=== PATIENT | male | born 1970 | race Hispanic/Latino ===

== ENCOUNTER 2017-11-26 17:22 | Emergency (ER) | payer BC, OTHER ==
[~2017-11-26 17:22] MED LIST: LEVO500T2 PO; METF-444 PO
[2017-11-26 17:51] LABS: BASOPHILS % (AUTO) 0.6 % (0.0-5.0); EOSINOPHILS % (AUTO) 1.2 % (0.0-8.0); HEMATOCRIT 35.8 % (42-54); LYMPHOCYTES % (AUTO) 10.8 % (21.0-51.0); MEAN CORPUSCULAR HGB CONC 33.3 g/dL (32.0-36.0); MEAN CORPUSCULAR VOLUME 84.2 fL (79-99); NEUTROPHILS % (AUTO) 77.4 % (40.0-77.0); NUCLEATED RED BLOOD CELLS 0.1 % (0.0-0.19); PLATELET COUNT (AUTO) 167 K/uL (130-400); RED BLOOD CELL COUNT(AUTO) 4.25 MIL/uL (4.50-6.20); RED CELL DISTRIBUTION WIDTH 13.1 % (11.0-15.5)
[2017-11-26 18:02] LABS: CREATININE 1.3 mg/dL (0.5-1.5); POTASSIUM 3.6 mmol/L (3.5-5.1)
[2017-11-26] MEDS ORDERED: AMOXICILLIN/POTASSIUM CLAV 875-125 TABLET PO ONE (19:17)
== END 2017-11-26 19:20 | disposition home or self-care (01) ==
LOC: EDH 17:22
DX: J11.1 Influenza due to unidentified influenza virus with other respiratory manifestations (principal); K11.21 Acute sialoadenitis; E11.9 Type 2 diabetes mellitus without complications; I10 Essential (primary) hypertension
CPT/HCPCS: 36415; 80048; 85025; 87804

== ENCOUNTER 2017-11-27 08:04 | Emergency (ER) | payer OTHER ==
[2017-11-27] MEDS ORDERED: CLINDAMYCIN 600 MG/D5% WATER 50 ML IV ONE (09:10)
== END 2017-11-27 09:57 | disposition home or self-care (01) ==
LOC: EDH 08:04
DX: K11.21 Acute sialoadenitis (principal)
CPT/HCPCS: 82948; 96365; 99284; J3490

== ENCOUNTER 2023-08-25 12:08 | Emergency (ER) | payer OTHER ==
[~2023-08-25] VITALS: Ht 170.2 cm; Wt 129.3 kg
[2023-08-25 12:14] VITALS: O2SAT 95
[2023-08-25] MEDS ORDERED: DIAZEPAM 5 MG TABLET PO ONE (12:30)
[2023-08-25] MEDS: ONDANSETRON 4MG INJ IVP ONE (12:35)
[2023-08-25] MEDS: MORPHINE 4 MG SYG IVP ONE ×2 (12:36→16:11)
[2023-08-25] MEDS: DIAZEPAM 5 MG/ML 2 ML SYG IVP ONE (13:15)
[2023-08-25 13:36] VITALS: BP 155/78; PULSE 74; RESP 18
[2023-08-25] MEDS: PROPOFOL 10 MG/ML 20ML VIAL IV SCH (15:11)
[2023-08-25] MEDS: PROPOFOL 10 MG/ML 20ML VIAL IV ONE (15:13)
[2023-08-25] MEDS: MIDAZOLAM HCL 5 MG/ML 2ML VIAL IV ONE ×2 (15:13→15:14)
[2023-08-25] MEDS ORDERED: IBUP-2077 PO (16:20)
== END 2023-08-25 16:51 | disposition home or self-care (01) ==
LOC: EDH 12:08
DX: S43.005A Unspecified dislocation of left shoulder joint, initial encounter (principal); S42.292A Other displaced fracture of upper end of left humerus, initial encounter for closed fracture; E11.9 Type 2 diabetes mellitus without complications; E78.00 Pure hypercholesterolemia, unspecified; I10 Essential (primary) hypertension; W18.39XA Other fall on same level, initial encounter; Y93.89 Activity, other specified; Y92.89 Other specified places as the place of occurrence of the external cause; Y99.8 Other external cause status
CPT/HCPCS: 99285; 23650; 96374; 96375 ×2; 82948; 73020; 73030 ×2; 99152; J3360; J2704; J2405; J2270; J2250; J3490